=== PATIENT | male | born 1950 | race Caucasian/White ===

== ENCOUNTER 2022-02-17 09:28 | Outpatient (CLI) | payer MEDICARE, OTHER, SELFPAY ==
[2022-02-17 10:20] LABS: Basophils Percent Auto 0.5 % (0.2-1.2); Eosinophils Absolute Auto 0.1 K/mm3 (0-0.3); Eosinophils Percent Auto 1.2 % (0-4.4); Hematocrit 48.6 % (42.0-52.0); Immature Granulocyte Absolute 0.03 K/mm3 (0.00-0.031); Immature Granulocyte Percent A 0.5 % (0-0.5); Lymphocytes Absolute Auto 1.94 K/mm3 (0.9-3.2); Mean Corpuscular HGB Conc 32.9 g/dl (32-36); Mean Corpuscular Hemoglobin 32.9 pg (26-34); Mean Platelet Volume 10.6 fl (7.4-10.4); Monocytes Absolute Auto 0.8 K/mm3 (0.1-0.6); Monocytes Percent Auto 12.2 % (2.6-8.5); Neutrophils Absolute Auto 3.6 K/mm3 (1.3-6.7); Neutrophils Percent Auto 55.6 % (45.5-73.1); Platelet Count Result 178 k/mm3 (150-375); Red Blood Count 4.86 M/mm3 (4.6-6.20); Red Cell Distribution Width 13.4 % (11.5-14.5); White Blood Count 6.5 K/mm3 (4.5-10.0)
[2022-02-17 10:38] LABS: Alanine Aminotransferase 28 U/L (6-50); Albumin Level 4.5 g/dL (3.5-5.1); Alkaline Phosphatase 52 U/L (38-126); Anion Gap 6 mmol/L (8-16); Aspartate Amino Transferase 27 U/L (17-59); Bilirubin,Total 1.2 mg/dL (0.2-1.3); Blood Urea Nitrogen 21 mg/dL (9-20); Calcium 9.3 mg/dL (8.4-10.2); Carbon Dioxide 28 mmol/L (22-30); Chloride 105 mmol/L (98-107); Cholesterol 164 mg/dL (0-200); Estimated Glomerular Filt Rate 55; Glucose 103 mg/dL (65-110); HDL Direct 55 mg/dL; Hemoglobin A1C 5.5 % (<5.7); Potassium 4.1 mmol/L (3.4-5.0); Sodium 139 mmol/L (137-145); Triglycerides 82 mg/dL (<150)
[2022-02-17 10:51] LABS: LDL Cholesterol Direct 75 mg/dL
[2022-02-17 10:53] LABS: Vitamin D 25 Hydroxy 49.2 ng/mL
[2022-02-17 11:25] LABS: Prostate Specific Antigen 1.5 ng/mL (< OR = 4.0)
== END 2022-02-17 09:29 | disposition home or self-care (01) ==
PROVIDERS: PCP Nurse Practitioner; Visit Provider Nurse Practitioner
DX: E78.5 Hyperlipidemia, unspecified (principal); I10 Essential (primary) hypertension; R73.03 Prediabetes; E55.9 Vitamin D deficiency, unspecified; Z12.5 Encounter for screening for malignant neoplasm of prostate
CPT/HCPCS: 36415; 80053; 80061; 82306; 83036; 84153; 85025; G0103

== ENCOUNTER 2023-03-22 00:09 | Day surgery (SDC) | payer MEDICARE, OTHER, SELFPAY ==
[2023-03-09 15:19] VITALS: BMI 34.0
[2023-03-22 10:19] VITALS: BP 132/87; PULSE 111; RESP 18; TEMP 36.3; O2SAT 98
[2023-03-22] MEDS: LACTATED RINGERS 1,000 ML 150 ML IV CONT (10:32)
--- NOTE | 2023-03-22 11:01 | P.HP_ITS ---
History of Present Illness History of Present Illness Consent: Risks, benefits, and alternatives have been discussed and questions answered. Patient agrees to proceed with procedure. Chief complaint: neoplasm sreening Narrative: Selvin Pérez is a 72 year old male Presents for screening colonoscopy. Patient's current weight appetite and bowel movements are normal. Patient denies abdominal pain. He has had no bleeding. Family history noncontributory. 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 Patient presents today for follow-up examination. Review of Systems Review of Systems: Review of systems noncontributory. [facility] Past Medical History Medical History (Updated 03/22/23 @ 11:03 by Tung Chanel MD) Enlarged prostate with lower urinary tract symptoms (LUTS) Essential (primary) hypertension Other hyperlipidemia Varicose veins of other specified sites Family History Family History Father Carcinoma of colon Mother Family history of Alzheimer's disease Social History Social History Smoking status: Former smoker Tobacco type: cigarettes Smoking end date: 12/13/16 Alcohol intake: current Alcohol use details: 4-5 drinks monthly Substance use type: does not use Living arrangements: with family Spiritual care concerns: No Meds Home Medications and Allergies Home Medications Medication Instructions Recorded Confirmed Type sodium,potassium,mag sulfates 17.5 See Rx Instructions PO .COMPLEX 02/03/23 Rx gram-3.13 gram-1.6 gram oral soln #354 mL (Suprep Bowel Prep Kit) atorvastatin 10 mg tablet 10 mg PO DAILY #90 tabs 03/01/23 03/09/23 Rx lisinopril 10 mg tablet 10 mg PO DAILY #90 tabs 03/01/23 03/09/23 Rx Allergies Allergy/AdvReac Type Severity Reaction Status Date / Time No Known Allergies Allergy Mild Verified 03/22/23 10:18 Vital Signs Vital Signs - 24 hr 03/22/23 10:19 Temperature 97.3 F L Pulse Rate 111 H Respiratory Rate 18 Blood Pressure 132/87 Pulse Oximetry 98 Oxygen Delivery Room Air Exam Narrative: Physical exam reveals patient to be alert. Vital signs stable. HEENT exam is unremarkable. Patient is anicteric. Lungs are clear to auscultation and percussion. Heart is without murmur or extra sounds. Abdomen bowel sounds are present soft nontender with no hepatosplenomegaly. Digital external rectal exam is normal. Assessment and Plan Assessment and plan (1) Encounter for screening colonoscopy: Code(s): Z12.11 - Encounter for screening for malignant neoplasm of colon Status: Acute Assessment and Plan: Patient presents for screening colonoscopy. He has a distant history of a tubulovillous adenoma 15 years ago. Further recommendations may be given after endoscopy.
--- NOTE | 2023-03-22 11:33 | WPDANESEPPF ---
Anes - Initial Pre Proc Eval Procedure: Operation Date: 03/22/23 11:30 Proposed Procedures p Screening Colonoscopy - Tung Chanel MD Date/Time: 03/22/23 11:33 Surgeon: Tung Chanel MD Pre Op Diagnosis: neoplasm sreening Patient Data Age: 72 Gender: M Height: 1.75 m Weight: 104.5 kg Last Vital Signs Temp 36.3 C L 03/22/23 10:19 Pulse 111 H 03/22/23 10:19 Resp 18 03/22/23 10:19 BP 132/87 03/22/23 10:19 Pulse Ox 98 03/22/23 10:19 O2 Del Method Room Air 03/22/23 10:19 Allergies Allergy/AdvReac Type Severity Reaction Status Date / Time No Known Allergies Allergy Mild Verified 03/22/23 10:18 Home Medications Medication Instructions Recorded Confirmed Type sodium,potassium,mag sulfates 17.5 See Rx Instructions PO .COMPLEX 02/03/23 Rx gram-3.13 gram-1.6 gram oral soln #354 mL (Suprep Bowel Prep Kit) atorvastatin 10 mg tablet 10 mg PO DAILY #90 tabs 03/01/23 03/09/23 Rx lisinopril 10 mg tablet 10 mg PO DAILY #90 tabs 03/01/23 03/09/23 Rx Patient hx anesthesia problems: none Family hx anesthesia problems: none Results Review: All pre-operative results and documents have been reviewed as part of the pre-operative evaluation. [facility] Past Medical History Medical History Enlarged prostate with lower urinary tract symptoms (LUTS) Essential (primary) hypertension Other hyperlipidemia Varicose veins of other specified sites Family History Family History Father Carcinoma of colon Mother Family history of Alzheimer's disease Social History Social History Smoking status: Former smoker Tobacco type: cigarettes Smoking end date: 12/13/16 Alcohol intake: current Alcohol use details: 4-5 drinks monthly Substance use type: does not use Living arrangements: with family Spiritual care concerns: No Anes - Eval Final PreProcedure Day of Procedure 08/08/23 11:33 Patient weight: overweight Heart: regular rate and rhythm Lungs: clear to auscultation Airway: Mallampati scale class II Neurological: alert and oriented Last oral intake: >/= 8 hours ASA classification: II Emergent: no Anesthetic plan: proceed Anesthesia type and monitoring: general GIVS and standard monitoring Results Review: All pre-operative results and documents have been reviewed as part of the pre-operative evaluation. Informed Consent: The patient's anesthetic plan and its attendant risks and benefits were discussed with the patient/family/POA. Questions were solicited and answers provided to the satisfaction of the patient/family/POA.
[2023-03-22 11:59] VITALS: BP 111/71; PULSE 82; RESP 26; O2SAT 98
[2023-03-22 12:09] VITALS: BP 104/64; PULSE 71; RESP 20; O2SAT 99
[2023-03-22 12:19] VITALS: BP 117/76; PULSE 72; RESP 20; O2SAT 99
== END 2023-03-22 12:27 | disposition home or self-care (01) ==
PROVIDERS: PCP Internal Medicine; Visit Provider Internal Medicine Gastroenterology
PROC: 0DJD8ZZ Inspection of Lower Intestinal Tract, Via Natural or Artificial Opening Endoscopic (ICD-10-PCS; CPT 45378; principal; 2023-03-22 11:30)
DX: Z12.11 Encounter for screening for malignant neoplasm of colon (principal); K64.8 Other hemorrhoids; Z86.010 Personal history of colon polyps; I10 Essential (primary) hypertension; E78.49 Other hyperlipidemia; N40.1 Benign prostatic hyperplasia with lower urinary tract symptoms; Z87.891 Personal history of nicotine dependence
CPT/HCPCS: G0105; J2704; J7120